=== PATIENT | female | born 1995 | race Two or more races ===

== ENCOUNTER 2023-11-06 19:05 | Emergency (ER) | payer SELFPAY ==
[~2023-11-06] VITALS: Ht 160 cm; Wt 61.2 kg
[2023-11-06 19:13] VITALS: BP 110/76; TEMP 98.4; O2SAT 100
== END 2023-11-06 20:50 | disposition left against medical advice (07) ==
LOC: ER 19:09
DX: R10.9 Unspecified abdominal pain (principal); Z53.21 Procedure and treatment not carried out due to patient leaving prior to being seen by health care provider